=== PATIENT | female | born 1985 | race Caucasian/White ===

== ENCOUNTER → 2021-08-30 02:09 | Outpatient (CLI) | payer OTHER, SELFPAY ==
[2021-08-30 16:40] LABS: SARS-CoV-2 RNA PCR Negative
== END ==
PROVIDERS: PCP Internal Medicine; Visit Provider Internal Medicine
DX: B34.9 Viral infection, unspecified (principal); Z20.822 Contact with and (suspected) exposure to COVID-19
CPT/HCPCS: C9803; U0003; U0005

== ENCOUNTER 2022-04-22 14:00 | Outpatient (CLI) | payer OTHER, SELFPAY ==
[2022-04-22 14:42] LABS: Hematocrit 41.9 % (37.0-47.0); Hemoglobin 13.9 g/dL (12.0-15.0)
== END 2022-04-22 14:01 | disposition home or self-care (01) ==
LOC: ANHSURGERY 14:20
PROVIDERS: PCP Internal Medicine; Visit Provider Obstetrics & Gynecology
DX: N95.0 Postmenopausal bleeding (principal)
CPT/HCPCS: 36415; 85014; 85018

== ENCOUNTER 2022-04-25 03:36 | Day surgery (SDC) | payer OTHER, SELFPAY ==
--- NOTE | 2022-04-22 12:43 | PM.IMHP ---
H&P: HPI History of Present Illness Date/Time: 04/22/22 12:43 Chief Complaint: Vaginal bleeding Narrative: A 36-year-old female with a history of estrogen dependent breast cancer on anastrozole who has been chemically postmenopausal for 18 months who had an episode of bleeding. Ultrasound showed the endometrial lining to be greater than 4mm. There were some ovarian follicles and it is suspected that there was some ovarian activity. However in light of the vaginal bleeding on anastrozole with a history of the breast cancer she is admitted for hysteroscopy dilatation curettage risks and benefits reviewed in full. She received the [employer] handout entitled hysteroscopy as well as dilatation and curettage respectively. She had all questions answered and asked to proceed PMFSH Past Medical History Medical History Cancer delivery delivered Surgical History Surgical History H/O mastectomy Family History Family History Sibling Asthma Father Cerebrovascular accident, Onset Age: 61 Family history of heart disease in male family member before age 55 Patient's father is Other Family history of malignant neoplasm of breast Social History Social History Smoking status: Former smoker Smoking end date: 03/30/10 Alcohol intake: current Meds Home Medications and Allergies Home Medications Medication Instructions Recorded Confirmed Type anastrozole 1 mg tablet 1 mg PO DAILY 04/29/21 10/07/21 History cholecalciferol (vitamin D3) 10 10 mcg PO DAILY 04/29/21 10/07/21 History mcg (400 unit) capsule biotin 1 mg capsule 1 mg PO DAILY 10/07/21 10/07/21 History goserelin 3.6 mg subcutaneous 3.6 mg subcut Q28D 10/07/21 10/07/21 History implant (Zoladex) Allergies Allergy/AdvReac Type Severity Reaction Status Date / Time No Known Allergies Allergy Verified 04/22/22 12:43 Exam Const: General: cooperative, healthy appearing and comfortable Nutritional Appearance: average body habitus Orientation/consciousness: oriented to person, oriented to place and oriented to time HENMT: Head: normal to inspection Resp: Effort & Inspection: normal respiratory effort Cardio: Rate: regular rate Rhythm: regular rhythm Heart sounds: S1 normal heart sound present and S2 normal heart sound present GI: Inspection: normal to inspection Auscultation: normal bowel sounds : External Female Exam: normal external appearance Speculum Exam - Vagina: normal appearance of the vagina Speculum Exam - Cervix: normal appearance of the cervix Bimanual exam- vagina & uterus: Uterine tenderness Bimanual Exam- Adnexa, other: normal adnexae Assessment and Plan Assessment and plan (1) Postmenopausal bleeding: Code(s): N95.0 - Postmenopausal bleeding Status: Acute Plan Hysteroscopy/dilatation curettage
--- NOTE | 2022-04-22 12:53 | PC.NURSE ---
Report to the Outpatient Waiting Room, entrance under the green pavilion located off [facility], at time _1130_ on date _[id number]_. Planned Procedure Time: _130pm_. Time changes happen often and if your time is changed the preop area will call you the afternoon before. - You and your visitor will be asked to self-screen and do not enter if you have any COVID symptoms. - Only one visitor is requested with a max of two and NO children visitors are allowed at this time. - The patient visitor may be requested to leave or wait in car when not with patient due to distancing restrictions. - A mask is optional within the hospital at this time. Patients may have clear liquids (water, carbonated beverages, clear teas, apple juice) until 3 hours prior to surgery with a maximum of 20 ounces. - No food from midnight until time of surgery Take the following medications with a SIP of water the morning of surgery: ____None DO NOT STOP ANY OF YOUR OTHER PRESCRIPTION MEDICATIONS PRIOR TO SURGERY ?EXCEPT THE FOLLOWING Medications to discontinue per physician Biotin and vitamin d3 Date to take last dose__stop now Please no make-up, nail turkmen, hairspray, perfume, deodorant, or body powder the day of surgery. No jewelry (including any body piercings) or valuables the day of surgery, leave them at home. Please take a shower or bath the night before, or the morning of, surgery with an antibacterial soap. Wear comfortable, loose fitting clothing. - Jewelry must be removed prior to entering the operating room. Rings and piercings that are not removed may be cut off. - The hospital will not accept responsibility for valuables. - Please leave all valuables, including medications, at home the day of surgery. If you are going home after surgery, a licensed bus driver/monitor must drive you home. - NO public transportation without another adult if you receive anesthesia. - We recommend that an adult stay with you for 24 hours following discharge. - We also recommend that you do not drive, make important decision, drink alcoholic beverages, or take any drugs that were not prescribed by your health care provider for at least 24 hours after your discharge time. Follow any additional instructions given to you from your surgeon. If you or anyone in your household have experienced Covid symptoms in the past week, please notify your surgeon or the nurse liaison at the phone number below for possible testing. Telephone instructions given to __Patient____and asked if any additional questions and then verbalized understanding. Patient advised to call surgeon office or pre surgery nurse liaison [phone] if any additional questions.
--- NOTE | 2022-04-25 06:25 | WPDHPUPDATE1 ---
History and Physical Update Update Date/Time: 04/25/22 06:25 History and Physical has been reviewed, including an updated exam of the patient. There are NO changes in the patient's condition. Risks, benefits, and alternatives have been discussed and questions answered. Patient agrees to proceed with procedure.
[2022-04-25 13:00] VITALS: BP 113/65; PULSE 89; RESP 16; TEMP 36.8; O2SAT 100
[2022-04-25] MEDS: ACETAMINOPHEN 500 MG TABLET 1000 MG PO (13:30)
[2022-04-25] MEDS: LACTATED RINGERS 1,000 ML 30 ML IV CONT (13:30)
--- NOTE | 2022-04-25 13:43 | WPDANESEPPF ---
Anes - Initial Pre Proc Eval Procedure: Operation Date: 04/25/22 14:15 Proposed Procedures p Hysteroscopy with Dilation and Curettage - Conrad Bacon MD Date/Time: 04/25/22 13:43 Surgeon: Conrad Bacon MD Pre Op Diagnosis: Post Menopausal Bleeding, Hx of Breast Ca Patient Data Age: 36 Gender: F Height: 1.7 m Weight: 67.8 kg Last Vital Signs Temp 36.8 C 04/25/22 13:00 Pulse 89 04/25/22 13:00 Resp 16 04/25/22 13:00 BP 113/65 04/25/22 13:00 Pulse Ox 100 04/25/22 13:00 O2 Del Method Room Air 04/25/22 13:00 Allergies Allergy/AdvReac Type Severity Reaction Status Date / Time No Known Allergies Allergy Verified 04/25/22 13:24 Home Medications Medication Instructions Recorded Confirmed Type anastrozole 1 mg tablet 1 mg PO DAILY 04/29/21 04/22/22 History cholecalciferol (vitamin D3) 10 10 mcg PO DAILY 04/29/21 04/22/22 History mcg (400 unit) capsule biotin 1 mg capsule 1 mg PO DAILY 10/07/21 04/22/22 History goserelin 3.6 mg subcutaneous 3.6 mg subcut Q28D 10/07/21 04/22/22 History implant (Zoladex) hydrocodone 5 mg-acetaminophen 325 1 tablet PO Q4H PRN pain #20 tabs 04/25/22 Rx mg tablet Patient hx anesthesia problems: none Family hx anesthesia problems: none Results Review: All pre-operative results and documents have been reviewed as part of the pre-operative evaluation. [facility] Past Medical History Medical History Cancer delivery delivered Surgical History Surgical History H/O mastectomy Family History Family History Sibling Asthma Father Cerebrovascular accident, Onset Age: 61 Family history of heart disease in male family member before age 55 Patient's father is Other Family history of malignant neoplasm of breast Social History Social History Years smoked: 9 Smoking status: Former smoker Tobacco type: cigarettes Smoking end date: 04/22/15 Alcohol intake: current Living arrangements: with family Spiritual care concerns: No Anes - Eval Final PreProcedure Day of Procedure 04/25/22 13:43 Patient weight: normal Heart: regular rate and rhythm Lungs: clear to auscultation and normal air movement Airway: Mallampati scale class II Neurological: alert and oriented Last oral intake: >/= 8 hours ASA classification: III Emergent: no Anesthetic plan: proceed Anesthesia type and monitoring: general GIVS Results Review: All pre-operative results and documents have been reviewed as part of the pre-operative evaluation. Informed Consent: The patient's anesthetic plan and its attendant risks and benefits were discussed with the patient/family/POA. Questions were solicited and answers provided to the satisfaction of the patient/family/POA.
[2022-04-25] MEDS: LIDOCAINE HCL 1% PF 30 ML VIAL 10 ML INFILTRATE (14:47)
[2022-04-25 14:59] VITALS: BP 96/56; PULSE 93; RESP 14; O2SAT 100
--- NOTE | 2022-04-25 15:00 | W.PM.PROC2 ---
Procedure Note - Detailed Date of Procedure 04/25/22 Pre-op Diagnosis Post Menopausal Bleeding, Hx of Breast Ca Post-op Diagnosis Same Procedure Performed Hysteroscopy / dilatation and curettage Surgeon Conrad Bacon MD Anesthesia MAC and Local Indications is a 36-year-old female with history of breast cancer who has been menopausal for 2 years on anastrozole Findings normal-appearing uterus lining. Normal-appearing fallopian tube openings Description of Procedure patient was prepped draped in the normal sterile fashion placed in dorsal lithotomy position. Under excellent IV sedation weighted speculum placed posterior fornix vagina. Anterior lip of the cervix grasped with single-tooth tenaculum. 2.5cc of 1% xylocaine anesthesia placed at 2, 4, 8, 10:00 a.m. of the cervix uterus out to 8cm. Serial dilatation with fragmented dilators performed followed passes the 5mm visualizing hysteroscope. Normal saline was used as visualizing medium. No abnormalities were seen the uterus was scraped over the entire 360 used to good grating sound was heard when no further tissue removed answers removed all were accounted for she tolerated the procedure well and went to recovery in satisfactory condition. All sponge, needle, instrument counts were correct. There were no immediate complications Estimated Blood Loss 5 Drains No Packing No Pathology Yes Complications No immediate complications Condition Stable Disposition PACU
[2022-04-25 15:25] VITALS: BP 106/60; PULSE 109; RESP 14; O2SAT 99
[2022-04-25 15:45] VITALS: BP 109/68; PULSE 78; RESP 14
== END 2022-04-25 15:53 | disposition home or self-care (01) ==
PROVIDERS: PCP Internal Medicine; Visit Provider Obstetrics & Gynecology
PROC: 0U5B8ZZ Destruction of Endometrium, Via Natural or Artificial Opening Endoscopic (ICD-10-PCS; CPT 58563; principal; 2022-04-25 14:15)
DX: N95.0 Postmenopausal bleeding (principal); Z85.3 Personal history of malignant neoplasm of breast; Z79.811 Long term (current) use of aromatase inhibitors; Z87.891 Personal history of nicotine dependence
CPT/HCPCS: 58558; 88305; A9270; J2250; J2704; J3010; J7120